=== PATIENT | female | born 1935 | race Caucasian/White ===

== ENCOUNTER 2020-10-14 09:18 | Emergency (ER) | payer MEDICARE ==
[~2020-10-14] VITALS: Ht 154.9 cm; Wt 63.6 kg
[2020-10-14] MEDS ORDERED: AMOXICILLIN500 MG PO (10:18)
[2020-10-14 10:31] VITALS: BP 187/84
== END 2020-10-14 10:38 | disposition home or self-care (01) ==
LOC: ED 09:18
PROC: 0HQKXZZ Repair Right Lower Leg Skin, External Approach (ICD-10-PCS; principal; 2020-10-14)
DX: S81.811A Laceration without foreign body, right lower leg, initial encounter (principal); I10 Essential (primary) hypertension; G62.9 Polyneuropathy, unspecified; M79.7 Fibromyalgia; W01.0XXA Fall on same level from slipping, tripping and stumbling without subsequent striking against object, initial encounter; Y92.009 Unspecified place in unspecified non-institutional (private) residence as the place of occurrence of the external cause